=== PATIENT | female | born 1960 | race Caucasian/White ===

== ENCOUNTER 2021-04-09 10:04 | Observation (INO) | payer OTHER, BC ==
[~2021-04-09] VITALS: Ht 165.1 cm; Wt 72.6 kg
[~2021-04-09 10:04] MED LIST: CALCIUM500 MG PO; EPIPEN0.3 MG/0.1; OMEGA 3 1,0001 EACH PO; SUPER GINSENG1 EACH PO; SYNTHROID50 MCG PO; VITAMIN D31250 MC1 PO; VIVELLE-DOT1 EAC1 TOP
[2021-04-09 11:06] VITALS: BP 126/54
[2021-04-09 11:08] LABS: MCH 29.7 pg (26.0-34.0); MCHC 33.4 g/dL (28.0-37.0); MPV 7.4 fl. (7.2-11.1); RBC 4.39 mil/uL (4.20-5.00); RDW-CV 13.9 % (10.5-14.5)
[2021-04-09 11:16] LABS: ANION GAP 8 mmol/L (7-16); BUN 21 mg/dL (7-18); CALCIUM 8.5 mg/dL (8.5-10.1); CHLORIDE 104 mmol/L (98-107); CO2 30 mmol/L (21-32); CREATININE 0.8 mg/dL (0.6-1.3); GLUCOSE 88 mg/dL (70-99); POTASSIUM 3.6 mmol/L (3.5-5.1); SODIUM 142 mmol/L (136-145)
[2021-04-09 11:21] LABS: CHOLESTEROL 166 mg/dL (<200); HDL CHOLESTEROL 55 mg/dL (>40); LDL CHOLESTEROL 98 mg/dL (<100); TRIGLYCERIDE 65 mg/dL (<150); VLDL 13 mg/dL (<40)
[2021-04-09 11:22] LABS: SERUM ASSESSMENT Clear
[2021-04-09 11:23] LABS: APTT 25.2 Seconds (25.0-31.3); PROTIME 10.3 Seconds (9.20-11.50)
[2021-04-09] MEDS ORDERED: ASA81BEC PO (11:29)
[2021-04-09] MEDS ORDERED: METOPROLOL SUCC25 M1 PO (11:31)
[2021-04-09] MEDS ORDERED: CRESTOR40 MG PO (11:32)
[2021-04-09] MEDS ORDERED: LEVSIN0.125 MG PO (11:33)
--- NOTE | 2021-04-09 14:44 | CARD ---
[address] [address] CARDIAC CATH REPORT Name: RAGHU LLANES Room: [address] M.R.#: [id number] Admission: 04/09/21 Attend Phys: Robby Floyd MD, Discharge: Date of : 56 Report #: [id number] THIS REPORT FOR: cc: Maureen Evangelista Mallory PA Holkins,Robby Velasquez MD [facility] ~ APPROVED REPORT Study performed: 04/09/2021 12:02:24 Patient Details Patient Status: Out-Patient Room #: The patient is a 60 year-old female Event Personnel Robby [facility] Administrator, Khadijah Mckinney RN Stockholder, Ekaterina Lazo RTR Scrub, Luis Enrique Szymanski CLOTHING WORKER Monitor, Clark Dupont RTR Monitor Procedures Performed Left Heart Cath w/or w/o Coronaries [id number] [facility] [address] Place w/wo Plasty Single LAD 549120 Hemostasis w/ Angioseal Indication Unstable angina Risk Factors Hypercholesterolemia Admission/Lab Medications/Medications given during procedure Midazolam (Versed) IV 2 mg, Lidocaine Subcut 20 ml, Nitroglycerin IC 159 mcg, Midazolam (Versed) IV 1 mg, Angiomax IV 10.5 ml, Angiomax IV 10.5 ml, Angiomax IV 25.45 ml per hr, Nitroglycerin IC 100 mcg, Fentanyl IV 50 mcg, Angiomax IV 2 ml, Effient PO 60 mg, Aspirin PO 162 mg Procedure Narrative The patient was brought electively to the Cardiac Catheterization Laboratory and was prepped and draped in a sterile manner. The right femoral was infiltrated with 2% Lidocaine subcutaneous anesthesia. A 6Fr Ultimum sheath was inserted into the right femoral artery. Coronary angiography was performed using coronary diagnostic catheters. The right coronary system [place] [address] CARDIAC CATH REPORT Name: RAGHU LLANES Room: [address] M.R.#: [id number] Admission: 04/09/21 Attend Phys: Robby Floyd MD, Discharge: Date of : 56 Report #: [id number] a Diagnostic 3DRC 5Fr catheter. The left coronary system was accessed and visualized with a Diagnostic JL4 6Fr catheter. The left ventricle was accessed and visualized with a Diagnostic Pigtail 6Fr catheter. Left ventricular/Aortic Valve gradient assessed via catheter pullback. Left ventriculogram was performed in NAVARRO projection. Pre-demployment femoral angiogram was performed . Closure device was deployed with a 6 Fr Angioseal. The patient tolerated the procedure well and there were no complications associated with the procedure. There was no hematoma. Intraoperative Conscious Sedation Sedation start time: 1227 Case end Time: 1332 Fentanyl 50 mcg Versed 5 mg Fluoro Time: 12.7 minutes Dose: DAP 03655 cGycm2 1110.69 mGy Contrast Type and Amount: Omnipaque 330 ml Coronary Angiography The patient's coronary anatomy is right dominant. Diagnostic Cath Left Main 0% narrowing LAD 75% tubular mid vessel stenosis Circumflex 0% narrowing Right Coronary 20% narrowing of the midportion of the large dominant right coronary artery Left Ventriculography The left ventricle is normal in size with normal contractility. The left ventricular ejection fraction is estimated to be 65%. Left ventricular wall motion abnormalities are not present. There is no mitral insufficiency. Hemodynamics The aortic pressure is 127/49 mmHg with a mean of 81 mmHg. The left ventricular pressure is 116/3 mmHg with a mean of mmHg. The left ventricular end diastolic pressure is 13 mmHg. There was no gradient across the aortic valve upon pullback. PCI Technique Lesion Anticoagulation was achieved with Angiomax. 10.5 mL Percutaneous coronary intervention was performed on the mid left anterior descending artery segment. The lesion stenosis [place] [address] CARDIAC CATH REPORT Name: RAGHU LLANES Room: [address]#: [id number] Admission: 04/09/21 Attend Phys: Robby Floyd MD, Discharge: Date of : 56 Report #: [id number] was 75% with YOBANY 3 flow. A 6FR XB 3.0 100CM Guide Catheter was used to engage the Left ostium. A IG: BMW 190cm Interventional Guidewire was used to cross the lesion. BALLOON DILATION A Balloon catheter Trek RX 2.5 X 12 was inserted and inflated up to rashida for seconds. Balloon was never deployed, used for measurement. STENT DEPLOYMENT A drug-eluting stent [place] RX Stent 2.5X15mm was inserted and inflated up to 12.00atm for 12seconds. Additional Inflation: 12.00atm for 12seconds. Additional Inflation: 15.00atm for 12seconds. POST STENT DEPLOYMENT BALLOON DILATION A Balloon catheter NC Trek RX 2.75 X 12 was inserted and inflated up to 14.00atm for 13seconds. Additional Inflation: 15.00atm for 9seconds. Additional Inflation: 16.00atm for 10seconds. Final angiography reveals 0 % stenosis with YOBANY 3 flow. Conclusion 1. Significant coronary artery disease characterized by the following: A 75% tubular mid LAD stenosis B 20% narrowing in the midportion of the dominant right coronary artery 2. Normal left ventricular systolic function, estimated ejection fraction of 65% 3 normal left-sided hemodynamic study 4. Successful PCI with deployment of a drug-eluting stent at site of 75% tubular mid LAD stenosis with 0% residual narrowing and YOBANY-3 flow to the distal vessel Recommendations Cardiac Risk Reduction Program Aggressive Medical Therapy [place] [address] CARDIAC CATH REPORT Name: RAGHU LLANES Room: [address] Micaela Garcia#: [id number] Admission: 04/09/21 Attend Phys: Robby Floyd MD, Discharge: Date of : 56 Report #: [id number] Aspirin (any) Prasugrel Diagnostic Cath Approved by: Robby Floyd MD Date/Time: 04/09/2021 14:43:41 <ELECTRONICALLY SIGNED> By: Robby Floyd MD, FACC 04/09/21 1444 1444 1444Jomarta Floyd MD, FAC /INF
--- NOTE | 2021-04-09 15:33 | EKG ---
[place] [address] ELECTROCARDIOGRAM REPORT Name: RAGHU LLANES Room: [address] M.R.#: [id number] Admission: 04/09/21 Attend Phys: Jean Carlos Dorado Discharge: Date of : 56 Date of Service: 04/09/21 1114 Report #: [id number] THIS REPORT FOR: //name// [facility] Test Date: 2021-04-09 Test Time: 11:14:21 Pat Name: RAGHU LLANES Department: Room: [facility] Gender: F Management Trainee Program Stores: PRAKASH : 1960 Requested By: Robby Floyd Order Number: [id number] Pamela MD: Robby Floyd Measurements Intervals [place] Rate: 65 P: 72 VA: 193 QRS: 29 QRSD: 89 T: 38 QT: 428 QTc: 445 Interpretive Statements Sinus rhythm No previous ECG available for comparison Electronically Signed On 04-09-2021 15:33:05 CDT by Robby Floyd [email or web address] <ELECTRONICALLY SIGNED> By: Robby Floyd MD, [facility] 04/09/21 1533 1114 1114 Robby Floyd MD, [facility] /EPI
[2021-04-09 15:50] VITALS: BP 126/54
[2021-04-09 16:34] VITALS: BP 120/62
[2021-04-09 23:52] VITALS: BP 106/53
[2021-04-10 04:26] VITALS: BP 106/51
[2021-04-10 05:00] LABS: HEMATOCRIT 35.5 % (37.0-47.0); HEMOGLOBIN 11.8 gm/dL (12.0-15.0); MCH 29.4 pg (26.0-34.0); MCHC 33.2 g/dL (28.0-37.0); MCV 88.4 fL (80.0-100.0); MPV 7.8 fl. (7.2-11.1); RBC 4.02 mil/uL (4.20-5.00); RDW-CV 13.6 % (10.5-14.5); WBC 6.7 thou/uL (4.0-11.0)
[2021-04-10 05:08] LABS: ALKALINE PHOSPHATASE 66 U/L (46-116); ANION GAP 7 mmol/L (7-16); BUN 16 mg/dL (7-18); CALCIUM 8.5 mg/dL (8.5-10.1); CHLORIDE 108 mmol/L (98-107); CO2 27 mmol/L (21-32); CREATININE 0.7 mg/dL (0.6-1.3); GLUCOSE 85 mg/dL (70-99); POTASSIUM 3.7 mmol/L (3.5-5.1); SGOT 12 U/L (15-37); SGPT 29 U/L (30-65); SODIUM 142 mmol/L (136-145); TOTAL BILIRUBIN 0.6 mg/dL (<0.1-1.0); TOTAL PROTEIN 6.1 g/dL (6.4-8.2); TROPONIN-I LEVEL <0.06 ng/mL (<0.06)
[2021-04-10] MEDS ORDERED: NITROGLYCERIN0.4 MG SUBLING (08:44)
[2021-04-10] MEDS ORDERED: EFFIENT10 MG PO (08:44)
[2021-04-10 09:00] VITALS: BP 134/66
[2021-04-10 10:39] VITALS: BP 134/66
--- NOTE | 2021-04-10 12:24 | NUR ---
PT DISCHARGED HOME WITHOUT ANY ISSUES TALKED ABOUT TRYING TO TAKE HER MEDS TO "AGREE WITH HER" UPSET STOMACH AND SORE, KIND OF ANXIOUS WELL IV AND MONITOR DISCONTINUED
--- NOTE | 2021-04-10 12:46 | EKG ---
[place] [address] ELECTROCARDIOGRAM REPORT Name: RAGHU LLANES Room: [address] M.R.#: [id number] Admission: 04/09/21 Attend Phys: Jean Carlos Dorado Discharge: 04/10/21 Date of : 56 Date of Service: 04/09/21 1441 Report #: [id number] THIS REPORT FOR: //name// 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
--- NOTE | 2021-04-10 12:53 | EKG ---
[place] [address] ELECTROCARDIOGRAM REPORT Name: RAGHU LLANES Room: [address] M.R.#: [id number] Admission: 04/09/21 Attend Phys: Jean Carlos Dorado Discharge: 04/10/21 Date of : 56 Date of Service: 04/10/21 0358 Report #: [id number] THIS REPORT FOR: //name// [facility] Test Date: 2021-04-10 Test Time: 03:58:59 Pat Name: RAGHU LLANES Department: Room: [facility] Gender: F Facilities Painter: PAIGE : 1960 Requested By: Robby Floyd Order Number: [id number] Pamela MD: Robby Floyd Measurements Intervals [place] Rate: 65 P: -17 MS: 197 QRS: 48 QRSD: 86 T: 34 QT: 424 QTc: 441 Interpretive Statements Sinus rhythm Compared to ECG 04/09/2021 11:14:21 No significant changes Electronically Signed On 04-10-2021 12:53:16 CDT by Robby Floyd [email or web address] <ELECTRONICALLY SIGNED> By: Robby Floyd MD, [facility] 04/10/21 1253 0358 0358 Robby Floyd MD, [facility] /EPI
--- NOTE | 2021-04-10 13:04 | D ---
[address] [address] DISCHARGE SUMMARY Name: RAGHU LLANES Room: [address] Micaela Garcia#: [id number] Admission: 04/09/21 Attend Phys: Robby Floyd MD, Discharge: 04/10/21 Date of : 56 Report #: [id number] THIS REPORT FOR: cc: Maureen Evangelista Mallory PA Holkins, John M. MD [facility] ~ DOC #: [id number] Robby Floyd MD [facility] DATE OF DISCHARGE: 04/10/2021 FINAL DISCHARGE DIAGNOSES: 1. Unstable angina. 2. Coronary artery disease. 3. Hyperlipidemia. 4. Hypothyroidism. PROCEDURES: 04/09/2021 -- left heart catheterization, left ventriculography, selective coronary arteriography, percutaneous coronary intervention with deployment of drug-eluting stent in the mid LAD. HOSPITAL COURSE: The patient is a pleasant 60-year-old female with recent history of chest discomfort, strongly suggestive of angina with exertion. Episodes have increased in frequency and severity. She saw Dr. Lee who felt she had unstable angina. In the context of the clinical history and hyperlipidemia, cardiac catheterization was recommended. I performed that study on 04/09/2021, demonstrated significant single vessel disease with 80% tubular mid LAD stenosis. There were no significant stenosis of the left main, circumflex or right coronary artery. I deployed one drug-eluting stent in the mid LAD with 0% residual narrowing after post-dilatation. The patient did well post-procedurally and troponin was less than 0.06. She had no chest pain suggesting angina post-procedurally. She ambulated in the hallways without difficulty with good hemostasis at the right femoral site of catheterization. LABORATORY DATA: On 04/10/2021 revealed a sodium 142, potassium 3.7, BUN 16, creatinine 0.7, glucose 85. White blood cell count 6700, hemoglobin 11.8, hematocrit 35.5, platelets 247,000. Cholesterol 166, triglycerides 65, HDL 55, LDL 98. DISCHARGE MEDICATIONS: The patient was discharged home on the following medications: Prasugrel or Effient 10 mg daily with a 60 mg periprocedural dose having been given, p.r.n. sublingual nitroglycerin, calcium carbonate 500 mg p.r.n., estradiol 1 patch topically, L-thyroxine 50 mcg daily, fish oil 1000 mg daily, vitamin D3 1250 mcg daily, multivitamin with mineral 1 tablet daily, enteric-coated aspirin 81 mg daily, metoprolol succinate 25 one-half or 12.5 [place] [address] DISCHARGE SUMMARY Name: RAGHU LLANES Room: [address] Micaela MChrisRChris#: [id number] Admission: 04/09/21 Attend Phys: Robby Floyd MD, Discharge: 04/10/21 Date of : 56 Report #: [id number] daily, rosuvastatin or Crestor 40 mg daily and Levsin 0.125 mg daily. The patient is scheduled to return to see Dr. Lee in followup on 04/25/2021 at 1440. Therefore, the patient is discharged home in stable condition on the aforementioned medications with followup as described above. Robby lFoyd MD [facility] JMH/GAU <ELECTRONICALLY SIGNED> By: Robby Floyd MD, [facility] 04/10/21 1304 0922 [email or web address] Floyd MD, [facility] /nt
== END 2021-04-10 12:20 | disposition home or self-care (01) ==
LOC: M.CL 10:04 → M.2W 13:47 → M.TBA-CV 13:47 → M.2W 14:30
PROVIDERS: ADMIT Internal Medicine; ATTEND Internal Medicine
DX: I25.110 Atherosclerotic heart disease of native coronary artery with unstable angina pectoris (principal); Z20.822 Contact with and (suspected) exposure to COVID-19; E78.5 Hyperlipidemia, unspecified; E03.9 Hypothyroidism, unspecified; E78.00 Pure hypercholesterolemia, unspecified

== ENCOUNTER 2021-04-25 06:49 | Emergency (ER) | payer OTHER, BC ==
[~2021-04-25] VITALS: Ht 165.1 cm; Wt 72.6 kg
[~2021-04-25 06:49] MED LIST changes: +ASA81BEC PO; +CRESTOR40 MG PO; +EFFIENT10 MG PO; +LEVSIN0.125 MG PO; +METOPROLOL SUCC25 M1 PO; +NITROGLYCERIN0.4 MG SUBLING
[2021-04-25 07:19] LABS: ABSOLUTE EOSINOPHILS 0.3 thou/uL (0.0-0.7); ABSOLUTE LYMPHOCYTES 2.2 thou/uL (0.8-5.3); ABSOLUTE MONOCYTES 0.4 thou/uL (0.0-1.2); ABSOLUTE NEUTROPHILS 3.9 thou/uL (1.6-8.1); BASOPHILS 0.4 %; EOSINOPHILS 4.4 %; HEMATOCRIT 37.9 % (37.0-47.0); HEMOGLOBIN 12.7 gm/dL (12.0-15.0); LYMPHOCYTES 32.4 %; MCH 29.7 pg (26.0-34.0); MCHC 33.6 g/dL (28.0-37.0); MCV 88.3 fL (80.0-100.0); MONOCYTES 6.4 %; MPV 7.3 fl. (7.2-11.1); NUCLEATED RBCS 0 /100WBC; PLATELET COUNT* 307 thou/uL (150-400); POLYS 56.4 %; RBC 4.29 mil/uL (4.20-5.00); RDW-CV 13.5 % (10.5-14.5); WBC 6.9 thou/uL (4.0-11.0)
[2021-04-25 07:28] LABS: CALCIUM 8.6 mg/dL (8.5-10.1); CREATININE 0.8 mg/dL (0.6-1.3); POTASSIUM 3.8 mmol/L (3.5-5.1)
[2021-04-25 07:35] LABS: ALBUMIN 3.6 g/dL (3.4-5.0); TOTAL BILIRUBIN 0.5 mg/dL (<0.1-1.0); TOTAL PROTEIN 6.9 g/dL (6.4-8.2)
[2021-04-25] MEDS ORDERED: TRAMADOL 50 MG50 MG PO (07:40)
[2021-04-25 08:03] VITALS: BP 140/72
--- NOTE | 2021-04-25 14:22 | EKG ---
[place] [address] ELECTROCARDIOGRAM REPORT Name: RAGHU LLANES Room: [facility]#: [id number] Admission: 04/25/21 Attend Phys: Discharge: 04/25/21 Date of : 56 Date of Service: 04/25/21 0656 Report #: [id number] THIS REPORT FOR: //name// [facility] ED Test Date: 2021-04-25 Test Time: 06:56:16 Pat Name: RAGHU LLANES Department: Room: Gender: F Administrative Personal Assistant: DSJacqueline : 1960 Requested By: Dangelo Estevez Order Number: [id number] MD: Robby Floyd Measurements Intervals [place] Rate: 77 P: -16 OR: 173 QRS: 100 QRSD: 85 T: 79 QT: 386 QTc: 437 Interpretive Statements Sinus rhythm Lateral infarct, old Baseline wander in lead(s) II,III,aVF Compared to ECG 04/10/2021 03:58:59 Myocardial infarct finding now present Electronically Signed On 04-25-2021 14:22:12 CDT by Robby Floyd [email or web address] <ELECTRONICALLY SIGNED> By: Robby Floyd MD, [facility] 04/25/21 1422 0656 0656 Robby Floyd MD, [facility] /EPI
== END 2021-04-25 08:03 | disposition home or self-care (01) ==
LOC: M.ERS 06:49
PROVIDERS: Emergency Medicine
DX: M54.81 Occipital neuralgia (principal); E03.9 Hypothyroidism, unspecified; Z88.7 Allergy status to serum and vaccine; Z88.5 Allergy status to narcotic agent; Z88.6 Allergy status to analgesic agent; Z79.82 Long term (current) use of aspirin; Z79.899 Other long term (current) drug therapy; Z90.49 Acquired absence of other specified parts of digestive tract